=== PATIENT | male | born 1935 | race Caucasian/White ===

== ENCOUNTER 2019-09-25 05:26 | Day surgery (SDC) | payer MEDICARE ==
[2019-09-18 15:02] LABS: BASOPHILS # (AUTO) 0.1 X10'3 (0-0.2); BASOPHILS % (AUTO) 1.1 % (0-1); EOSINOPHILS # (AUTO) 0.1 X10'3 (0-0.9); EOSINOPHILS % (AUTO) 1.3 % (0-6); LYMPHOCYTES # (AUTO) 1.2 X10'3 (1.1-4.8); MEAN CORPUSCULAR HEMOGLOBIN 33.5 PG (27.0-31.0); MEAN CORPUSCULAR HGB CONC 33.4 g/dL (33.0-36.5); MEAN CORPUSCULAR VOLUME 100.3 FL (78-98); MEAN PLATELET VOLUME 8.6 FL (7.4-10.4); MONOCYTES # (AUTO) 0.8 X10'3 (0-0.9); MONOCYTES % (AUTO) 13.2 % (2-12); NEUTROPHILS # (AUTO) 4.1 X10'3 (1.8-7.7); NEUTROPHILS % (AUTO) 65.4 % (42-75); PRE OP HEMATOCRIT 42.4 % (42.0-52.0); PRE OP HEMOGLOBIN 14.2 g/dL (14.0-17.9); PRE OP PLATELET COUNT 210 X10'3 (140-440); RED BLOOD COUNT 4.22 X10'6 (4.70-6.10); RED CELL DISTRIBUTION WIDTH 12.3 % (11.5-14.5)
[2019-09-18 15:18] LABS: ALBUMIN 3.9 G/DL (3.4-5.0); ALBUMIN/GLOBULIN RATIO 1.3 (1.1-1.5); ALKALINE PHOSPHATASE 62 IU/L (46-116); BLOOD UREA NITROGEN 13 MG/DL (7-18); BUN/CREATININE RATIO 17.8 (5.4-32.0); CALCIUM 8.6 MG/DL (8.5-10.1); CHLORIDE 101 MMOL/L (99-107); CREATININE 0.73 MG/DL (0.60-1.10); PRE OP ALT 21 U/L (30-65); PRE OP ANION GAP 8 (8-16); PRE OP AST 14 U/L (10-37); PRE OP BILIRUB, TOTAL 1.2 MG/DL (0.0-1.0); PRE OP GLUCOSE 107 MG/DL (70-104); PRE OP SODIUM 136 MMOL/L (135-145); TOTAL CARBON DIOXIDE 27.2 MMOL/L (24-32); TOTAL PROTEIN 6.9 G/DL (6.4-8.2); eGFR > 90 ML/MIN
[~2019-09-25] VITALS: Ht 170.2 cm; Wt 69.1 kg
[2019-09-25] VITALS (9 sets, daily range): BP systolic 103–187; BP diastolic 45–78
[~2019-09-25 05:26] MED LIST: ACET-1025 PO; AMLO2.5T5 PO; ATOR10TA70 PO; BECL10.62 INH; ESCI10TA61 PO; FISH OIL; GINKGO BILOBA; LORA-268 PO; LUTEIN; VITAMIN D; ringers solution, lacted 1,000 ML IV SCH
[2019-09-25] MEDS ORDERED: famotidine 20mg tablet PO ONE (05:30)
[2019-09-25] MEDS ORDERED: ceFAZolin 1GM/D5W- ADD-VANTAGE 50 ML IV ONE (05:30)
[2019-09-25] MEDS ORDERED: LIDOcaine 1% (10mg/ml) 2ml vial ONE (05:47)
[2019-09-25] MEDS ORDERED: BUPIVAcaine/PF 2.5mg/ml (0.25%) 10ml vial ONE (06:47)
[2019-09-25] MEDS ORDERED: ringers solution, lacted 1,000 ML IV SCH (07:04)
[2019-09-25] MEDS ORDERED: hydrALAZINE 20mg/ml inj. IV PRN (07:05)
[2019-09-25] MEDS ORDERED: fentaNYL/PF 50MCG/1 ML 2ML syringe IV PRN ×2 (07:05)
[2019-09-25] MEDS ORDERED: morphine 2 MG/ML inj. syringe IV PRN (07:05)
[2019-09-25] MEDS ORDERED: labetalol 20mg/4ml (5mg/ml) syringe IV PRN (07:05)
[2019-09-25] MEDS ORDERED: ondansetron/PF 4mg/2ml inj IV PRN (07:05)
[2019-09-25] MEDS ORDERED: morphine 4 MG/ML inj SYRINge IV PRN (07:05)
[2019-09-25] MEDS ORDERED: LIDOcaine 0.5% (5mg/ml) 50ml vial ONE (07:08)
--- NOTE | 2019-09-25 07:56 | NUR ---
Received from OR via [facility], accompanied by Anesthesiologist DR GIRARD and report given by Anesthesiolgist. RESTING QIETLY, NO PAIN, DRESSING CDI LEFT ARM/HAND. FINGERS MOVE, ARE WARM WITH BRISK CAP REFILL.
--- NOTE | 2019-09-25 08:56 | NUR ---
TO HOME VIA PRIVATE VEHICLE. DRIVING. NO PAIN, VSS, REFUSES PAIN PRESCRIPTION. FINGERS WARM, MOVE WELL.
== END 2019-09-25 08:56 | disposition home or self-care (01) ==
LOC: PAS 05:26
PROVIDERS: ATTEND Orthopaedic Surgery Hand Surgery
DX: G56.02 Carpal tunnel syndrome, left upper limb (principal); F41.9 Anxiety disorder, unspecified; J45.909 Unspecified asthma, uncomplicated; I10 Essential (primary) hypertension; M17.0 Bilateral primary osteoarthritis of knee; M47.896 Other spondylosis, lumbar region; M16.11 Unilateral primary osteoarthritis, right hip; E78.00 Pure hypercholesterolemia, unspecified; Z11.59 Encounter for screening for other viral diseases; Z96.612 Presence of left artificial shoulder joint; Z96.611 Presence of right artificial shoulder joint; Z90.79 Acquired absence of other genital organ(s); Z98.890 Other specified postprocedural states; Z79.899 Other long term (current) drug therapy; Z72.89 Other problems related to lifestyle
CPT/HCPCS: 36415; 64721; 80053; 82948; 85025; 93005; J0690; J2001; J3490; U0003; A4215; J7120

== ENCOUNTER 2020-04-16 12:40 | Outpatient (CLI) | payer MEDICARE ==
[~2020-04-16 12:40] MED LIST changes: +ESCI-8 PO; -ESCI10TA61 PO; -ringers solution, lacted 1,000 ML IV SCH
== END 2020-04-16 23:59 | disposition home or self-care (01) ==
LOC: CARD DIAG 12:40
PROVIDERS: ATTEND Family Medicine
DX: I08.0 Rheumatic disorders of both mitral and aortic valves (principal); I25.10 Atherosclerotic heart disease of native coronary artery without angina pectoris; I71.2 Thoracic aortic aneurysm, without rupture; M47.814 Spondylosis without myelopathy or radiculopathy, thoracic region; J98.11 Atelectasis
CPT/HCPCS: 36415; 71250; 87040; 87077; 87186; 93306

== ENCOUNTER 2021-06-27 13:25 | Outpatient (CLI) | payer MEDICARE ==
[~2021-06-27 13:25] MED LIST changes: -ACET-1025 PO; -ESCI-8 PO; -FISH OIL; +GINK120C PO; -GINKGO BILOBA; -LUTEIN; +OMEG1CAP2 PO; +OXYC-658 PO; +VIT1CAPS46 PO; +VITA400C67 PO; -VITAMIN D
== END 2021-06-27 23:59 | disposition home or self-care (01) ==
LOC: RAD 13:25
PROVIDERS: ATTEND Family Medicine
DX: S09.90XA Unspecified injury of head, initial encounter (principal); I70.90 Unspecified atherosclerosis; I67.82 Cerebral ischemia; X58.XXXA Exposure to other specified factors, initial encounter; Y93.89 Activity, other specified; Y92.89 Other specified places as the place of occurrence of the external cause; Y99.8 Other external cause status
CPT/HCPCS: 70450